=== PATIENT | male | born 1975 | race Caucasian/White ===

== ENCOUNTER → 2017-05-17 | Outpatient (CLI) | payer BC ==
--- NOTE | 2017-05-17 20:31 | CONS ---
CONSULTATION 41-year-old male patient, who was noted on routine evaluation by his primary care physician to be at an increased risk of obstructive sleep apnea. He reported loud snoring, witnessed apneas and chronic hypersomnia and sleepiness with Lole[place] score of 17. He has been going to bed around 12:30 am, wakes up 6:00 am in the morning. The patient works in construction. He has 2 brothers with obstructive sleep apnea. No sleep paralysis. No hallucinations. No cataplexy. No recent weight gain or weight loss. No history of any motor vehicle accidents because of feeling drowsy or sleepy. No restlessness in lower extremities. PAST MEDICAL HISTORY: Hypertension and smoking. PAST SURGICAL HISTORY: Negative. DRUG ALLERGIES: Not known. SOCIAL HISTORY: The patient is a smoker, trying to quit and currently on nicotine patch. No history of alcohol. No history of IV drugs. FAMILY HISTORY: Positive for sleep apnea. Two of his brothers have sleep apnea and they are being treated. REVIEW OF SYSTEMS: 12-point review of system was done. No choking or gasping sensation at nighttime. No waking up gasping for air. No sweating. No palpitation. No anxiety or panic or no heartburn. No sleepwalking. He has some degree of anxiety. No nighttime shortness of breath or chest pain. No swelling lower extremities. No altered mentation. No headache. No seizure activity. PHYSICAL EXAMINATION: BP is 180/100, pulse is 69, respirations 16, temperature 97.7, saturation 96% on room air. Loleta score is 17, BMI 36.1, neck size 17 a quarter of an inch. Weight is 231. Height is 5 feet 7 inches. General appearance calm and comfortable. Head is atraumatic, normocephalic. NECK: Supple. There is no JVD. No goiter or neck masses. Mallampati class 3. LUNGS: Clear to auscultation. HEART: Sounds regular rate and rhythm. Normal S1, S2. No S3, S4. No murmurs. ABDOMEN: Soft, nontender. No organomegaly. EXTREMITIES: No edema. No cyanosis or clubbing. Neurologic: Alert and oriented x3. There is no focal neurological deficits. PSYCHIATRIC: Negative for anxiety or depression. SKIN: Negative for any wounds or ulceration. IMPRESSION: 1. Obstructive sleep apnea clinically suspected, under investigation. 2. Hypersomnia Loleta score of 17. 3. Obesity with a BMI of 36. 4. Hypertension with poorly controlled blood pressure. Currently on lisinopril. 5. Smoker. PLAN: 1. Encourage weight loss. 2. Follow up with primary care physician regarding blood pressure control. 3. In regard to the possibility of sleep apnea, the patient likely may have an underlying obstructive sleep apnea. The patient will be undergoing a screening polysomnogram and he will see me back in followup to discuss results and further recommendations are to follow regarding treatment options. SAUD / KURT: [id number] /
== END | disposition home or self-care (01) ==
LOC: SLEEP 16:13
PROVIDERS: ATTEND Internal Medicine Critical Care Medicine
DX: G47.10 Hypersomnia, unspecified (principal); I10 Essential (primary) hypertension; F17.200 Nicotine dependence, unspecified, uncomplicated; F51.9 Sleep disorder not due to a substance or known physiological condition, unspecified; E66.9 Obesity, unspecified; Z79.899 Other long term (current) drug therapy; Z68.36 Body mass index [BMI] 36.0-36.9, adult
CPT/HCPCS: 99211

== ENCOUNTER → 2018-04-11 | Outpatient (CLI) | payer BC ==
--- NOTE | 2018-04-11 16:14 | PN ---
PROGRESS NOTE This is a very pleasant 42-year-old male patient coming in regarding his sleep apnea. I diagnosed the patient with symptomatic obstructive sleep apnea back in June of 2017. At that time, the patient had a home sleep study and he had an AHI of 10.2. He was quite sleepy, somnolent with an [place] score of 17 and he was having loud snoring. The patient is still symptomatic. In fact, he has become more sleepy. This is affecting his quality of life. He is snoring very loud an today he is requesting further treatment and he wants to be off the CPAP unit. I noted that the patient has not gained any weight. He is averaging a good 6-7 hours of sleep. He is snoring very loud. He goes to bed around midnight and wakes up at 6 a.m. in the morning. Despite that, he is very much somnolent and sleepy. I also noted that his blood pressure was quite elevated today at 191/131. The patient is on lisinopril 20 mg, 1 tablet a day. No headaches. No altered mentation. No focal neurological deficits. No nausea. No vomiting. No dizziness. He is completely asymptomatic. He tells me that this is quite unusual for him to have this high of a blood pressure. REVIEW OF SYSTEMS: 12-point review of system was done. No altered mentation. No headache. No dizziness. No falls. No tinnitus. No shortness of breath. No cough or sputum production. He is somnolent and sleepy. He is having loud snoring. No history of any motor vehicle accident because of feeling drowsy or sleepy. No numbness or tingling in lower extremities. No restlessness of the lower extremities. He sleeps on his side. No nausea. No vomiting. No emesis. No heartburn. No chest pain. Occasional nocturia. PHYSICAL EXAMINATION: BP is 191/131, pulse is 88, respirations 16, and temperature 97.8, weight is 229. Height is 5 feet 6 inches. [place] Score is at 17. BMI 36.1. General appearance: Calm and comfortable. Obese. Head is atraumatic, normocephalic. Neck is short, supple. Crowding of the posterior oropharynx is present. Mallampati class IV. There is no goiter or neck masses. LUNGS: Diminished breath sounds bilaterally. HEART: Sounds are distant. Regular rate and rhythm. Normal S1, S2. No S3. No murmurs. ABDOMEN: Soft, nontender. No organomegaly. EXTREMITIES: No edema. No cyanosis or clubbing. IMPRESSION: 1. Symptomatic obstructive sleep apnea, mild with an AHI of 10. 2. Hypersomnia and sleepiness [place] score of 17. 3. Hypertension with poorly-controlled blood pressure. Asymptomatic. PLAN: Encourage close blood pressure monitoring. I asked the patient to contact his primary care physician. I asked the patient to take an additional tablet of lisinopril 20 mg and monitor his blood pressure. I gave him a prescription for hydrochlorothiazide to start if his blood pressure remains elevated pending further consultation with his primary care physician. Meanwhile, the patient will be given APAP unit for his obstructive sleep apnea. He was fitted today to a DreamWear full face mask under the nose, medium-size. He was given APAP through [facility] at a minimum pressure of 5, maximum pressure of 20 and further adjustments will be done based on his clinical response and compliance. Encourage weight loss. Cut down salt intake. Implement good sleep hygiene measures. We will continue to follow. MMODL / IJN: [id number] /
== END ==
LOC: SLEEP 15:07
PROVIDERS: ATTEND Internal Medicine Critical Care Medicine
DX: G47.33 Obstructive sleep apnea (adult) (pediatric) (principal); I10 Essential (primary) hypertension; Z99.89 Dependence on other enabling machines and devices

== ENCOUNTER → 2018-06-28 | Outpatient (CLI) | payer BC ==
--- NOTE | 2018-06-28 17:25 | PN ---
PROGRESS NOTE DATE OF SERVICE: 06/28/2018 This patient is a 42-year-old gentleman who [facility] of obstructive sleep apnea-hypopnea syndrome. Recently the patient had a home sleep apnea test, and I discussed results of this sleep study with the patient. He was started on treatment with AutoPAP and today is his first visit after he received the new CPAP unit. He is able to use CPAP equipment every night. He is sleeping better with the machine. He feels better during the day. His [place] Sleepiness Scale has decreased from 17 to 5. He sleeps better and again feels better during the day. At the same time, sometimes he still snores, according to his . I checked his CPAP unit. Auto PAP has a range of pressure from 5 to 20. Most of the time the pressure is 9 cm of water. Usage is 25/30 nights for more than 4 hours. Average usage is 6.7 hours. Apnea-hypopnea index is only 1.0, which is absolutely normal. Leak is quite high, ranging around 44 L/minute. The patient is using a DreamWear full-face mask under the nose. PHYSICAL EXAMINATION: GENERAL: A pleasant patient in no distress. VITAL SIGNS: BP 163/104, HR 64, RR 16, weight 228, temperature 98.1, oxygen saturation at room air 95%. HEENT: PERRLA, EOMI. Evaluation of oropharynx showed tongue protrudes midline. Low position of soft palate. Mallampati IV. NECK: Supple. No JVD. Thyroid is not palpable. LUNGS: Clear to percussion and to auscultation. Good air exchange. No wheezing or rhonchi. HEART: S1, S2 regular. No murmurs, gallops or rubs. ABDOMEN: Slightly obese. EXTREMITIES: No clubbing or cyanosis. BUCKET CHUCKER: Awake, alert, and oriented X3. Cranial nerves 2 to 7 intact. There is no fasciculation or atrophy. noted. No focal deficits observed. IMPRESSION: 1. Obstructive sleep apnea-hypopnea syndrome. Patient demonstrated great compliance with treatment, benefitting from treatment. 2. Hypertension. 3. Obesity. 4. Smoker for about 20 years, half pack a day. He continues to smoke. PLAN: 1. We will fit the patient with a different style full-face mask. 2. Patient will continue to use CPAP equipment every night for the whole night. 3. Losing weight. 4. Sleep hygiene with regular time in bed for at least 8 hours. 5. No driving if feeling any sleepiness. Thank you very much for allowing us to participate in the management of your patient. Sincerely, Rusty Leonardo MD, PhD, FAASM Diplomat of [employer] [employer] [place] [employer] Client Operations Manager of [facility] [place] MMODL / JAIMEN: [id number] /
== END | disposition home or self-care (01) ==
LOC: SLEEP 14:23
PROVIDERS: ATTEND Internal Medicine
DX: G47.33 Obstructive sleep apnea (adult) (pediatric) (principal); I10 Essential (primary) hypertension; E66.9 Obesity, unspecified; F17.210 Nicotine dependence, cigarettes, uncomplicated; Z99.89 Dependence on other enabling machines and devices